=== PATIENT | male | born 1985 | race Caucasian/White ===

== ENCOUNTER 2017-03-10 22:47 | Emergency (ER) | payer OTHER ==
[~2017-03-10] VITALS: Ht 180.3 cm; Wt 86.5 kg
[2017-03-10] MEDS ORDERED: CEPHALEXIN MONOHYDRATE 500 MG CAP PO ONE (23:15)
[2017-03-10] MEDS ORDERED: TETANUS/DIPHTHERIA TOXOID ADULT 0.5 ML VIAL IM ONE (23:15)
[2017-03-10] MEDS ORDERED: CEPH500C PO (23:29)
[2017-03-10] MEDS ORDERED: MUPI2OIN TOPICAL (23:29)
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
[2017-03-10 23:33] VITALS: BP 123/65; PULSE 71; RESP 16; TEMP 98.4; O2SAT 98
== END 2017-03-11 00:09 | disposition home or self-care (01) ==
LOC: NEPK 22:47
DX: S50.812A Abrasion of left forearm, initial encounter (principal); Y04.0XXA Assault by unarmed brawl or fight, initial encounter; Y99.0 Civilian activity done for income or pay; Z23 Encounter for immunization
CPT/HCPCS: 90471; 90714